=== PATIENT | female | born 1955 | race Caucasian/White ===

== ENCOUNTER 2016-11-30 15:11 | Emergency (ER) | payer MEDICARE, OTHER ==
[2016-11-30 14:15] LABS: BASOPHILS 0.5 %; BASOPHILS ABSOLUTE 0.03 10/3/uL (0.0-0.16); EOSINOPHILS 2.2 %; EOSINOPHILS ABSOLUTE 0.14 10/3/uL (0.0-0.53); ER CBC TAT 0 Hrs 08 Mins; HEMATOCRIT 41.7 % (36.0-48.0); HEMOGLOBIN 13.6 g/dL (12.0-16.0); IMMATURE GRANULOCYTES 0.2 %; IMMATURE GRANULOCYTES ABSOLUTE 0.01 10/3/uL (0.0-0.11); LYMPHOCYTES 33.2 %; LYMPHOCYTES ABSOLUTE 2.11 10/3/uL (0.67-4.30); MEAN CORPUS HGB CONC 32.6 g/dL (32.0-36.0); MEAN CORPUSCULAR HEMOGLOB 28.8 pg (26.0-34.0); MEAN CORPUSCULAR VOLUME 88.3 fL (80-100); MEAN PLATELET VOLUME 11.2 fL (9.2-13.0); MONOCYTES 11.3 %; MONOCYTES ABSOLUTE 0.72 10/3/uL (0.21-1.20); NEUTROPHILS 52.6 %; NEUTROPHILS ABSOLUTE 3.35 10/3/uL (2.02-8.40); PLATELET COUNT 185 10/3/uL (150-400); RBC DISTRIBUTION WIDTH 13.5 % (12.0-16.0); RED CELL COUNT 4.72 10/6/uL (4.0-5.6); WHITE BLOOD CELLS 6.4 10/3/uL (4.5-10.5)
[2016-11-30 14:22] LABS: MANUAL DIFF NO %
[2016-11-30 14:31] LABS: A/G RATIO 1.1 (0.7-1.9); ALBUMIN 3.5 G/DL (3.5-5.0); ALKALINE PHOSPHATASE 155 U/L (45-117); BUN (BLOOD UREA NITROGEN) 14 MG/DL (6-23); CALCIUM, SERUM 9.4 MG/DL (8.5-10.4); CHLORIDE, SERUM 104 MMOL/L (96-112); CO2 (CARBON DIOXIDE) 32 MMOL/L (24-34); CREATININE 0.72 MG/DL (0.55-1.02); GFR AFRICAN AMERICAN 106 ML/MIN (>=60); GFR NON AFRICAN AMERICAN 92 ML/MIN (>=60); GLOBULIN 3.2 G/DL (2.5-4.1); GLUCOSE, SERUM 86 MG/DL (60-99); POTASSIUM, SERUM 3.9 MMOL/L (3.5-5.3); SGOT(AST) 78 U/L (5-40); SGPT(ALT) 210 U/L (5-65); SODIUM, SERUM 138 MMOL/L (135-148); TOTAL BILIRUBIN 0.5 MG/DL (0-1.2); TOTAL PROTEIN 6.7 G/DL (6.0-8.5)
[~2016-11-30 15:11] MED LIST: APPLE CIDER VINEGAR; ASAB PO; AVINZA30 PO; BUSPAR5 PO; CELEBREX2 PO; CRESTOR10 PO; CYMBALTA60 PO; DEXTROAMPHET OR; DEXTROAMPHET10 MG PO; ESTRACE0.5 MG PO; FISH OIL1200 MG PO; FORTAMET1000 MG PO; GLUCCHONDR PO; GLUCOPHAGE1000 MG PO; LEVOTHYROXIN100 MCG PO; LEVOTHYROXIN112 MCG PO; LORTAB10 PO; MOBIC7.5 PO; MUCINEX DM1 TA1 OR; MULTIPLE VIT PO; MULTIVITAMI1 PO; NEUR300 PO; NEUR400 PO; NIACIN100 PO; NORCO1 TA2 PO; OSTEO BI-FLEX1 EACH PO; OXYCON10 PO; PRILOSEC40 MG PO; PROZAC PO; PROZAC40 MG PO; RELA5 PO; TRICOR145 PO; VASOTEC20 MG PO; VIB100 PO; VICTOZA18 MG/3 ML SC; VITAMIN D1000 UNI1 PO; VITAMIN D31000 UNIT PO; ZANAFLEX 4 MG TA4 MG PO
[2017-03-26] MEDS ORDERED: CALGLUCTAB PO (10:12)
[2017-03-26] MEDS ORDERED: PROTEIN SHAKES PO (10:12)
[2017-03-26] MEDS ORDERED: HERBAL TEA PO (10:15)
[2017-03-26] MEDS ORDERED: YOUNGEVITY PO (10:17)
== END 2016-11-30 17:15 | disposition home or self-care (01) ==
LOC: ER 15:11
PROVIDERS: Emergency Medicine
DX: R10.11 Right upper quadrant pain (principal); G89.18 Other acute postprocedural pain; Z90.49 Acquired absence of other specified parts of digestive tract; Z88.6 Allergy status to analgesic agent; Z88.1 Allergy status to other antibiotic agents; Z88.8 Allergy status to other drugs, medicaments and biological substances; Z91.09 Other allergy status, other than to drugs and biological substances; Z79.899 Other long term (current) drug therapy
CPT/HCPCS: 74177; 80053; 83690; 85025; 93005; 96374; 99285; J2405; Q9967